=== PATIENT | female | born 1965 | race Caucasian/White ===

== ENCOUNTER 2017-05-21 13:43 | Day surgery (SDC) | payer BC ==
[~2017-05-21 13:43] MED LIST: Lactated Ringers 1,000 ML IV SCH; Midazolam 1 MG/ML 2 ML SDV ONE; Propofol 200 MG/20 ML SDV ONE; Sodium Chloride 0.9% 10 ML Syringe FLUSH PRN; Sodium Chloride 0.9% 2.5 ML Syringe FLUSH PRN; fentaNYL 100 MCG/2 ML SDV ONE
--- NOTE | 2017-05-21 14:16 | PCM48HPAN ---
Post Anesthesia Note - EVALUATION WITHIN 48HRS OF ANESTHETIC Vital Signs in Normal Range: Yes Patient Participated in Evaluation: Yes Respiratory Function Stable: Yes Airway Patent: Yes Cardiovascular Function Stable: Yes Hydration Status Stable: Yes Pain Control Satisfactory: Yes Nausea and Vomiting Control Satisfactory: Yes Mental Status Recovered: Yes
--- NOTE | 2017-05-21 14:16 | PCM.PREANE ---
Preanesthetic Assessment - Anesthesia/Transfusion/Family Hx Anesthesia History: Prior Anesthesia Without Reaction Family History of Anesthesia Reaction: No Transfusion History: No Prior Transfusion(s) - Review of Systems General: No Symptoms Pulmonary: No Symptoms Cardiovascular: No Symptoms Gastrointestinal: No Symptoms Neurological: No Symptoms Other: Reports: None - Physical Assessment NPO Status Date: 05/20/17 (cl this am) Height: 1.68 m Weight: 72.121 kg ASA Class: 1 Mental Status: Alert & Oriented x3 Airway Class: Mallampati = 1 Dentition: Reports: Normal Dentition ROM/Head Extension: Full Lungs: Clear to Auscultation, Normal Respiratory Effort Cardiovascular: Regular Rate, Regular Rhythm - Allergies Allergies/Adverse Reactions: Allergies Allergy/AdvReac Type Severity Reaction Status Date / Time No Known Allergies Allergy Verified 05/19/17 08:22 - Anesthesia Plan Pre-Op Medication Ordered: None - Acknowledgements Anesthesia Type Planned: MAC Pt an Appropriate Candidate for the Planned Anesthesia: Yes Alternatives and Risks of Anesthesia Discussed w Pt/Guardian: Yes Pt/Guardian Understands and Agrees with Anesthesia Plan: Yes PreAnesthesia Questionnaire HEENT History: Reports: None Cardiovascular History: Reports: Other (See Below) Other Cardiovascular History: elevated BP in the past Musculoskeletal History: Reports: None - Past Surgical History Head Surgeries/Procedures: Reports: None HEENT Surgical History: Reports: LASIK, Oral Surgery Musculoskeletal Surgical History: Reports: Arthroscopic Knee - SUBSTANCE USE Smoking Status *Q: Never Smoker Recreational Drug Use History: No - HOME MEDS Home Medications: Home Meds Aspirin [[place] Aspirin] 81 mg PO DAILY 05/19/17 [History] Biotin 1 tab PO DAILY 05/19/17 [History] Ca Carbonate/Vitamin D3/Vit K [Calcium + D Soft Chewable Tab] 1 tab PO DAILY 10/29 [History] Levonorgestrel-Ethin Estradiol [Marlissa-28 Tablet] 1 tab PO DAILY 05/19/17 [ History] - CURRENT (IN HOUSE) MEDS Current Meds: Current Medications Lactated Ringer's (Ringers, Lactated) 1,000 mls @ 125 mls/hr IV ASDIRECTED [facility] Sodium Chloride (Saline Flush) 10 ml FLUSH ASDIRECTED PRN PRN Reason: Keep Vein Open Sodium Chloride (Saline Flush) 2.5 ml FLUSH ASDIRECTED PRN PRN Reason: Keep Vein Open Sodium Chloride (Saline Flush) 10 ml FLUSH ASDIRECTED PRN PRN Reason: Keep Vein Open Sodium Chloride (Saline Flush) 2.5 ml FLUSH ASDIRECTED PRN PRN Reason: Keep Vein Open Discontinued Medications Fentanyl (Sublimaze) Confirm Administered Dose 100 mcg .ROUTE .STK-MED ONE Stop: 05/21/17 08:25 Midazolam HCl (Versed 1 Mg/Ml) Confirm Administered Dose 2 mg .ROUTE .STK-MED ONE Stop: 05/21/17 08:25 Propofol (Diprivan 20 Ml) Confirm Administered Dose 200 mg .ROUTE .STK-MED ONE Stop: 05/21/17 08:25
[2017-05-21] MEDS ORDERED: Propofol 200 MG/20 ML SDV ONE (14:37)
--- NOTE | 2017-05-21 14:50 | PCM.OPNOTE ---
- General Post-Op/Procedure Note Date of Surgery/Procedure: 05/21/17 Operative Procedure(s): Colonoscopy Findings: Diverticulosis Pre Op Diagnosis: Colonoscopy Post-Op Diagnosis: Diverticulosis Anesthesia Technique: MAC Primary Surgeon: Bhavani Davies Condition: Good
--- NOTE | 2017-05-21 15:09 | PCM.POSTAN ---
POST ANESTHESIA ASSESSMENT - MENTAL STATUS Mental Status: Oriented, Somnolent - RESPIRATORY Respiratory Status: Respiratory Rate WNL, Airway Patent, O2 Saturation Stable - CARDIOVASCULAR CV Status: Pulse Rate WNL, Blood Pressure Stable - GASTROINTESTINAL GI Status: No Symptoms - POST OP HYDRATION Hydration Status: Adequate & Stable
--- NOTE | 2017-05-21 19:10 | OR ---
SURGEON: LATRICE SNYDER MD DATE OF PROCEDURE: 05/21/2017 PREOPERATIVE DIAGNOSIS: Screening colonoscopy. POSTOPERATIVE DIAGNOSIS: Diverticulosis. PROCEDURE PERFORMED: Screening colonoscopy. ANESTHESIA: MAC. INSTRUMENT USED: Olympus colonoscope. EXTENT OF THE EXAM: To the cecum. PREPARATION: Good. LIMITATIONS: None. INDICATIONS: The patient is a 52-year-old female who presents for first time screening colonoscopy. We discussed the procedure, expected perioperative course, and risks including bleeding, infection, or damage to surrounding structures including perforation. The patient verbalized understanding and wishes to proceed. PROCEDURE IN DETAIL: The patient was brought into the endoscopy suite and placed in the left lateral decubitus position. A time-out was completed verifying the patient's name, age, date of , allergies, and procedure to be performed. Monitored anesthesia care was induced, and continuous oxygen was provided via nasal cannula throughout the procedure. After adequate sedation was achieved, a digital rectal exam was performed. This exam was within normal limits. A well- lubricated colonoscope was then inserted in the rectum and advanced under direct visualization to the level of the cecum. The cecum was identified by both visual and anatomic landmarks. A photograph was taken of the cecal cap. The scope was then fully withdrawn while examining the color, texture, anatomy, and integrity of the mucosa from the cecum to the anal canal. The patient was found to have diverticulosis within the distal colon. The scope was then brought into the rectum and retroflexed for visualization of the anal canal opening. This appeared normal, and a photograph was taken. The scope was then straightened out and removed from the patient. The cecum to anus time was 7 minutes. The patient tolerated the procedure well and was taken to the PACU in stable condition. ENDOSCOPIC DIAGNOSIS: Diverticulosis. RECOMMENDATIONS: Follow up in clinic in 2 weeks. KAREN WHEATLEY /[id number]
== END 2017-05-21 16:08 | disposition home or self-care (01) ==
LOC: MW.SDS 13:43
PROVIDERS: ATTEND Surgery
DX: Z12.11 Encounter for screening for malignant neoplasm of colon (principal); K57.30 Diverticulosis of large intestine without perforation or abscess without bleeding; Z80.0 Family history of malignant neoplasm of digestive organs; Z83.71 Family history of colonic polyps; Z79.82 Long term (current) use of aspirin; Z98.890 Other specified postprocedural states
CPT/HCPCS: 45378; 81025; J2250; J3010; J2704

== ENCOUNTER 2018-08-03 08:02 | Day surgery (SDC) | payer BC ==
[~2018-08-03 08:02] MED LIST changes: +Bupivacaine 0.25% 10 ML SDV ONE; +Dexamethasone 4 MG/ML 5 ML MDV ONE; +Glycopyrrolate 0.2 MG/ML SDV ONE; -Lactated Ringers 1,000 ML IV SCH; +Methylene Blue 50 MG/10 ML Ampule ONE; +Neostigmine Methylsulfate 1 MG/ML 5 ML Syringe ONE; +Ondansetron 4 MG/2 ML SDV ONE; +Rocuronium 10 MG/ML 10 ML Syringe ONE; -Sodium Chloride 0.9% 10 ML Syringe FLUSH PRN; -Sodium Chloride 0.9% 2.5 ML Syringe FLUSH PRN; +Succinylcholine 200 MG/10 ML MDV ONE; -fentaNYL 100 MCG/2 ML SDV ONE; +fentaNYL 250 MCG/5 ML SDV ONE
[2018-08-03] MEDS ORDERED: Fluorescein 5 ML Vial ONE (08:48)
--- NOTE | 2018-08-03 08:59 | PCM.PREANE ---
Preanesthetic Assessment - Anesthesia/Transfusion/Family Hx Anesthesia History: Prior Anesthesia Without Reaction Family History of Anesthesia Reaction: No Transfusion History: No Prior Transfusion(s) - Review of Systems General: No Symptoms Pulmonary: No Symptoms Cardiovascular: No Symptoms Gastrointestinal: No Symptoms Neurological: No Symptoms Other: Reports: None - Physical Assessment NPO Status Date: 08/02/18 O2 Sat by Pulse Oximetry: 98 Respiratory Rate: 16 Vital Signs: Last Vital Signs Temp 96.8 F 08/03/18 08:20 Pulse 78 08/03/18 08:20 Resp 16 08/03/18 08:20 BP 133/91 H 08/03/18 08:20 Pulse Ox 98 08/03/18 08:20 Height: 5 ft 6 in Weight: 75.296 kg ASA Class: 1 Mental Status: Alert & Oriented x3 Airway Class: Mallampati = 1 Dentition: Reports: Normal Dentition ROM/Head Extension: Full Lungs: Clear to Auscultation, Normal Respiratory Effort Cardiovascular: Regular Rate, Regular Rhythm - Lab Values: Laboratory Last Values WBC 6.22 K/uL (4.0-11.0) 08/03/18 08:25 RBC 4.34 M/uL (4.30-5.90) 08/03/18 08:25 Hgb 13.6 g/dL (12.0-16.0) 08/03/18 08:25 Hct 40.5 % (36.0-46.0) 08/03/18 08:25 MCV 93.3 fL (80.0-98.0) 08/03/18 08:25 MCH 31.3 pg (27.0-32.0) 08/03/18 08:25 MCHC 33.6 g/dL (31.0-37.0) 08/03/18 08:25 RDW Std Deviation 45.3 fl (28.0-62.0) 08/03/18 08:25 RDW Coeff of Yolanda 13 % (11.0-15.0) 08/03/18 08:25 Plt Count 246 K/uL (150-400) 08/03/18 08:25 MPV 9.20 fL (7.40-12.00) 08/03/18 08:25 Neut % (Auto) 65.2 % (48.0-80.0) 08/03/18 08:25 Lymph % (Auto) 27.0 % (16.0-40.0) 08/03/18 08:25 [place] % (Auto) 6.4 % (0.0-15.0) 08/03/18 08:25 Eos % (Auto) 1.1 % (0.0-7.0) 08/03/18 08:25 Baso % (Auto) 0.3 % (0.0-1.5) 08/03/18 08:25 Neut # (Auto) 4.1 K/uL (1.4-5.7) 08/03/18 08:25 Lymph # (Auto) 1.7 K/uL (0.6-2.4) 08/03/18 08:25 [place] # (Auto) 0.4 K/uL (0.0-0.8) 08/03/18 08:25 Eos # (Auto) 0.1 K/uL (0.0-0.7) 08/03/18 08:25 Baso # (Auto) 0.0 K/uL (0.0-0.1) 08/03/18 08:25 Nucleated RBC % 0.0 /100WBC 08/03/18 08:25 Nucleated RBCs # 0 K/uL 08/03/18 08:25 HCG, Qual NEGATIVE (NEG) 08/03/18 08:25 - Allergies Allergies/Adverse Reactions: Allergies Allergy/AdvReac Type Severity Reaction Status Date / Time No Known Allergies Allergy Verified 08/03/18 08:24 - Blood Blood Available: No - Anesthesia Plan Pre-Op Medication Ordered: None - Acknowledgements Anesthesia Type Planned: General Anesthesia Pt an Appropriate Candidate for the Planned Anesthesia: Yes Alternatives and Risks of Anesthesia Discussed w Pt/Guardian: Yes Pt/Guardian Understands and Agrees with Anesthesia Plan: Yes Additional Comments: PMH: AUB PLAN:GET PreAnesthesia Questionnaire HEENT History: Reports: None Cardiovascular History: Reports: Other (See Below) Other Cardiovascular History: elevated BP in the past Gastrointestinal History: Reports: Diverticulosis Genitourinary History: Reports: None [employer] History: Reports: Musculoskeletal History: Reports: None - Past Surgical History Head Surgeries/Procedures: Reports: None HEENT Surgical History: Reports: LASIK, Oral Surgery Other HEENT Surgeries/Procedures: lump removed from under tongue GI Surgical History: Reports: Colonoscopy Musculoskeletal Surgical History: Reports: Arthroscopic Knee - SUBSTANCE USE Smoking Status *Q: Never Smoker Recreational Drug Use History: No - HOME MEDS Home Medications: Home Meds Aspirin [[place] Aspirin EC] 81 mg PO DAILY 05/19/17 [History] Biotin 1 tab PO DAILY 05/19/17 [History] Ca Carbonate/Vitamin D3/Vit K [Calcium + D Soft Chewable Tab] 1 tab PO DAILY 10/29 [History] Levonorgestrel-Ethin Estradiol [Marlissa-28 Tablet] 1 tab PO DAILY 05/19/17 [ History] - CURRENT (IN HOUSE) MEDS Current Meds: Current Medications Discontinued Medications Bupivacaine HCl (Sensorcaine-Mpf 0.25%) Confirm Administered Dose 20 ml .ROUTE .STK-MED ONE Stop: 08/03/18 08:03 Dexamethasone (Dexamethasone) Confirm Administered Dose 20 mg .ROUTE .STK-MED ONE Stop: 08/03/18 07:10 Fentanyl (Sublimaze) Confirm Administered Dose 250 mcg .ROUTE .STK-MED ONE Stop: 08/03/18 07:08 Fluorescein Sodium ([place]-Fluor) Confirm Administered Dose 5 ml .ROUTE .STK-MED ONE Stop: 08/03/18 08:49 Glycopyrrolate (Robinul) Confirm Administered Dose 0.6 mg .ROUTE .STK-MED ONE Stop: 08/03/18 07:14 Lidocaine HCl (Xylocaine-Mpf 1%) Confirm Administered Dose 5 mls @ as directed .ROUTE .STK-MED ONE Stop: 08/03/18 07:10 Acetaminophen (Ofirmev) Confirm Administered Dose 100 mls @ as directed IV .STK- MED ONE Stop: 08/03/18 07:15 Methylene Blue (Provayblue) Confirm Administered Dose 50 mg .ROUTE .STK-MED ONE Stop: 08/03/18 08:03 Midazolam HCl (Versed 1 Mg/Ml) Confirm Administered Dose 2 mg .ROUTE .STK-MED ONE Stop: 08/03/18 07:08 Neostigmine Methylsulfate (Neostigmine) Confirm Administered Dose 5 mg .ROUTE .STK-MED ONE Stop: 08/03/18 07:14 Ondansetron HCl (Zofran) Confirm Administered Dose 4 mg .ROUTE .STK-MED ONE Stop: 08/03/18 07:10 Propofol (Diprivan 20 Ml) Confirm Administered Dose 200 mg .ROUTE .STK-MED ONE Stop: 08/03/18 07:08 Rocuronium [place] (Zemuron) Confirm Administered Dose 100 mg .ROUTE .STK-MED ONE Stop: 08/03/18 07:10 Succinylcholine Chloride (Quelicin) Confirm Administered Dose 200 mg .ROUTE .K -MED ONE Stop: 08/03/18 07:10
[2018-08-03] MEDS ORDERED: Furosemide 40 MG/4 ML VIAL ONE (10:45)
[2018-08-03] MEDS ORDERED: ceFAZolin/Dextrose,Iso-Osmotic 2 GM/50 ML Duplex Bag IV ONE (10:45)
[2018-08-03] MEDS ORDERED: fentaNYL 100 MCG/2 ML SDV IVPUSH PRN (11:13)
[2018-08-03] MEDS ORDERED: Glycopyrrolate 0.2 MG/ML SDV ONE ×2 (11:24→12:01)
[2018-08-03] MEDS ORDERED: Ketorolac 30 MG/ML SDV ONE (11:53)
[2018-08-03] MEDS ORDERED: HYDROmorphone 2 MG/ML Syringe ONE (12:17)
[2018-08-03] MEDS ORDERED: Sodium Chloride 0.9% 20 ML ONE (12:18)
[2018-08-03] MEDS ORDERED: Acetaminophen/oxyCODONE 325-5 MG Tab PO PRN ×2 (13:05)
[2018-08-03] MEDS ORDERED: Ondansetron 4 MG/2 ML SDV IVPUSH PRN (13:05)
[2018-08-03] MEDS ORDERED: Promethazine 25 MG/ML SDV IM PRN (13:05)
[2018-08-03] MEDS ORDERED: Morphine 4 MG/ML Syringe IVPUSH PRN (13:05)
--- NOTE | 2018-08-03 13:14 | PCM.POSTAN ---
POST ANESTHESIA ASSESSMENT - MENTAL STATUS Mental Status: Alert, Oriented - RESPIRATORY Respiratory Status: Respiratory Rate WNL, Airway Patent, O2 Saturation Stable - CARDIOVASCULAR CV Status: Pulse Rate WNL, Blood Pressure Stable - GASTROINTESTINAL GI Status: No Symptoms - POST OP HYDRATION Hydration Status: Adequate & Stable
[2018-08-03] MEDS ORDERED: Lactated Ringers 1,000 ML IV SCH (13:15)
[2018-08-03] MEDS ORDERED: Ketorolac 30 MG/ML SDV IVPUSH SCH (13:15)
--- NOTE | 2018-08-03 13:17 | PCM.OPNOTE ---
- General Post-Op/Procedure Note Date of Surgery/Procedure: 08/03/18 Operative Procedure(s): Laparoscopic assisted vaginal hysterectomy, bilateral salpingoophrectomy with cystoscopy Findings: Bulky uterus 12-14 weeks size, small subserosa fibroid at the right cornua. Normal appearing tubes and ovaries. No bladder injury with efflux of urine from both ureters on cystoscopy Pre Op Diagnosis: Menorrhagia. Hypertrophy of the uterus Post-Op Diagnosis: Same Anesthesia Technique: General ET Tube Primary Surgeon: Rosa [place] Engineer: Erendira Juares Pathology: Uterus, cervix, tubes and ovaries Fluid Replacement, Intraop: 1,800 Output, Urine Amount: 350 EBL in mLs: 100 Complications: None Condition: Good Free Text/Narrative:: Intake & Output 08/02/18 08/03/18 08/03/18 22:59 06:59 14:59 Output Total 350 Balance -350
--- NOTE | 2018-08-03 18:06 | PCM.SURGPN ---
- General Info Date of Service: 08/03/18 POD#: 0 Post-Op Diagnosis: s/p LAVH + BSO Admission Diagnosis/Problem: Menorrhagia with irregular cycle Functional Status: Reports: Pain Controlled, Tolerating Diet, Ambulating - Review of Systems General: Denies: Fever, Malaise, Chills HEENT: Denies: Headaches Pulmonary: Denies: Shortness of Breath, Pleuritic Chest Pain Cardiovascular: Denies: Chest Pain, Palpitations, Dyspnea on Exertion Gastrointestinal: Denies: Abdominal Pain Genitourinary: Denies: Flank Pain - Patient Data Vitals - Most Recent: Last Vital Signs Temp 36.4 C 08/03/18 16:14 Pulse 89 08/03/18 16:14 Resp 16 08/03/18 16:14 BP 129/73 08/03/18 16:14 Pulse Ox 96 08/03/18 16:14 Weight - Most Recent: 166 lb I&O - Last 24 Hours: Intake & Output 08/03/18 08/03/18 08/03/18 06:59 14:59 22:59 Intake Total 2800 500 Output Total 1250 200 Balance 1550 300 Lab Results Last 24 Hrs: Laboratory Results - last 24 hr 08/03/18 08/03/18 08/03/18 Range/Units 08:25 08:25 08:25 WBC 6.22 (4.0-11.0) K/uL RBC 4.34 (4.30-5.90) M/uL Hgb 13.6 (12.0-16.0) g/dL Hct 40.5 (36.0-46.0) % MCV 93.3 (80.0-98.0) fL MCH 31.3 (27.0-32.0) pg MCHC 33.6 (31.0-37.0) g/dL RDW Std Deviation 45.3 (28.0-62.0) fl RDW Coeff of Yolanda 13 (11.0-15.0) % Plt Count 246 (150-400) K/uL MPV 9.20 (7.40-12.00) fL Neut % (Auto) 65.2 (48.0-80.0) % Lymph % (Auto) 27.0 (16.0-40.0) % [place] % (Auto) 6.4 (0.0-15.0) % Eos % (Auto) 1.1 (0.0-7.0) % Baso % (Auto) 0.3 (0.0-1.5) % Neut # (Auto) 4.1 (1.4-5.7) K/uL Lymph # (Auto) 1.7 (0.6-2.4) K/uL [place] # (Auto) 0.4 (0.0-0.8) K/uL Eos # (Auto) 0.1 (0.0-0.7) K/uL Baso # (Auto) 0.0 (0.0-0.1) K/uL Nucleated RBC % 0.0 /100WBC Nucleated RBCs # 0 K/uL Sodium 136 (136-145) mmol/L Potassium 4.1 (3.5-5.1) mmol/L Chloride 103 (98-107) mmol/L Carbon Dioxide 26.7 (21.0-32.0) mmol/L BUN 10 (7.0-18.0) mg/dL Creatinine 1.0 (0.6-1.0) mg/dL Est Cr Clr Drug Dosing 62.31 mL/min Estimated GFR (MDRD) 58.5 ml/min Glucose 90 (74-106) mg/dL Calcium 9.0 (8.5-10.1) mg/dL HCG, Qual NEGATIVE (NEG) Blood Type Antibody Screen 08/03/18 Range/Units 08:25 WBC (4.0-11.0) K/uL RBC (4.30-5.90) M/uL Hgb (12.0-16.0) g/dL Hct (36.0-46.0) % MCV (80.0-98.0) fL MCH (27.0-32.0) pg MCHC (31.0-37.0) g/dL RDW Std Deviation (28.0-62.0) fl RDW Coeff of Yolanda (11.0-15.0) % Plt Count (150-400) K/uL MPV (7.40-12.00) fL Neut % (Auto) (48.0-80.0) % Lymph % (Auto) (16.0-40.0) % [place] % (Auto) (0.0-15.0) % Eos % (Auto) (0.0-7.0) % Baso % (Auto) (0.0-1.5) % Neut # (Auto) (1.4-5.7) K/uL Lymph # (Auto) (0.6-2.4) K/uL [place] # (Auto) (0.0-0.8) K/uL Eos # (Auto) (0.0-0.7) K/uL Baso # (Auto) (0.0-0.1) K/uL Nucleated RBC % /100WBC Nucleated RBCs # K/uL Sodium (136-145) mmol/L Potassium (3.5-5.1) mmol/L Chloride (98-107) mmol/L Carbon Dioxide (21.0-32.0) mmol/L BUN (7.0-18.0) mg/dL Creatinine (0.6-1.0) mg/dL Est Cr Clr Drug Dosing mL/min Estimated GFR (MDRD) ml/min Glucose (74-106) mg/dL Calcium (8.5-10.1) mg/dL HCG, Qual (NEG) Blood Type A POSITIVE Antibody Screen NEGATIVE Med Orders - Current: Current Medications Lactated Ringer's (Ringers, Lactated) 1,000 mls @ 125 mls/hr IV ASDIRECTED [facility] Ketorolac Tromethamine (Toradol) 30 mg IVPUSH Q6H [facility] Stop: 08/04/18 13:16 Morphine Sulfate (Morphine) 4 mg IVPUSH Q2H PRN PRN Reason: Pain (severe 7-10) Ondansetron HCl (Zofran) 4 mg IVPUSH Q6H PRN PRN Reason: Nausea/Vomiting Oxycodone/Acetaminophen (Percocet 325-5 Mg) 1 tab PO Q4H PRN PRN Reason: Pain (moderate 4-6) Oxycodone/Acetaminophen (Percocet 325-5 Mg) 2 tab PO Q4H PRN PRN Reason: Pain (moderate 4-6) Promethazine HCl (Phenergan) 25 mg IM Q6H PRN PRN Reason: Nausea/Vomiting Discontinued Medications Bupivacaine HCl (Sensorcaine-Mpf 0.25%) Confirm Administered Dose 20 ml .ROUTE .STK-MED ONE Stop: 08/03/18 08:03 Cefazolin Sodium/Dextrose (Ancef) Confirm Administered Dose 2 gm IV .STK-MED ONE Stop: 08/03/18 10:46 Dexamethasone (Dexamethasone) Confirm Administered Dose 20 mg .ROUTE .STK-MED ONE Stop: 08/03/18 07:10 Fentanyl (Sublimaze) Confirm Administered Dose 250 mcg .ROUTE .STK-MED ONE Stop: 08/03/18 07:08 Fentanyl (Sublimaze) 50 mcg IVPUSH Q5M PRN PRN Reason: Pain (severe 7-10) Stop: 08/03/18 14:00 Fluorescein Sodium (Ak-Fluor) Confirm Administered Dose 5 ml .ROUTE .STK-MED ONE Stop: 08/03/18 08:49 Furosemide (Lasix) Confirm Administered Dose 40 mg .ROUTE .ST-MED ONE Stop: 08/03/18 10:46 Glycopyrrolate (Robinul) Confirm Administered Dose 0.6 mg .ROUTE .ST-MED ONE Stop: 08/03/18 07:14 Glycopyrrolate (Robinul) Confirm Administered Dose 0.2 mg .ROUTE .ST-MED ONE Stop: 08/03/18 11:25 Glycopyrrolate (Robinul) Confirm Administered Dose 0.2 mg .ROUTE .STK-MED ONE Stop: 08/03/18 12:02 Hydromorphone HCl (Dilaudid) Confirm Administered Dose 2 mg .ROUTE .STK-MED ONE Stop: 08/03/18 12:18 Lidocaine HCl (Xylocaine-Mpf 1%) Confirm Administered Dose 5 mls @ as directed .ROUTE .ST-MED ONE Stop: 08/03/18 07:10 Acetaminophen (Ofirmev) Confirm Administered Dose 100 mls @ as directed IV .STK- MED ONE Stop: 08/03/18 07:15 Sodium Chloride (Normal Saline) Confirm Administered Dose 20 mls @ as directed .ROUTE .STK-MED ONE Stop: 08/03/18 12:19 Ketorolac Tromethamine (Toradol) Confirm Administered Dose 30 mg .ROUTE .STK- MED ONE Stop: 08/03/18 11:54 Ketorolac Tromethamine (Toradol) 30 mg IVPUSH Q6H [facility] Stop: 08/04/18 13:16 Last Admin: 08/03/18 14:19 Dose: Not Given Methylene Blue (Provayblue) Confirm Administered Dose 50 mg .ROUTE .STK-MED ONE Stop: 08/03/18 08:03 Midazolam HCl (Versed 1 Mg/Ml) Confirm Administered Dose 2 mg .ROUTE .STK-MED ONE Stop: 08/03/18 07:08 Neostigmine Methylsulfate (Neostigmine) Confirm Administered Dose 5 mg .ROUTE .STK-MED ONE Stop: 08/03/18 07:14 Ondansetron HCl (Zofran) Confirm Administered Dose 4 mg .ROUTE .STK-MED ONE Stop: 08/03/18 07:10 Propofol (Diprivan 20 Ml) Confirm Administered Dose 200 mg .ROUTE .STK-MED ONE Stop: 08/03/18 07:08 Rocuronium [place] (Zemuron) Confirm Administered Dose 100 mg .ROUTE .STK-MED ONE Stop: 08/03/18 07:10 Succinylcholine Chloride (Quelicin) Confirm Administered Dose 200 mg .ROUTE .STK -MED ONE Stop: 08/03/18 07:10 - Exam Wound/Incisions: Dressing Dry and Intact General: Alert, Oriented Neck: Supple Lungs: Clear to Auscultation, Normal Respiratory Effort Cardiovascular: Regular Rate, Regular Rhythm GI/Abdominal Exam: Soft, Non-Tender Extremities: Non-Tender Skin: Warm - Problem List & Annotations (1) S/P laparoscopic assisted vaginal hysterectomy (LAVH) SNOMED Code(s): 381314912, 59221079, 428543783 Code(s): Z90.710 - ACQUIRED ABSENCE OF BOTH CERVIX AND UTERUS Status: Acute Current Visit: Yes (2) Status post bilateral salpingo-oophorectomy (BSO) SNOMED Code(s): 396280284, 547114349 Code(s): Z90.722 - ACQUIRED ABSENCE OF OVARIES, BILATERAL Status: Acute Current Visit: Yes - Problem List Review Problem List Initiated/Reviewed/Updated: Yes - My Orders Last 24 Hours: Active Orders 24 hr Category Date Time Status Patient Status [ADT] Routine ADT 08/03/18 13:09 Active Antiembolic Devices [RC] PER UNIT ROUTINE Care 08/03/18 13:10 Active Intake and Output [RC] Q12H Care 08/03/18 13:10 Active May Shower [RC] ASDIRECTED Care 08/03/18 13:05 Active Notify Provider Intake and Out [RC] ASDIRECTED Care 08/03/18 13:09 Active Notify Provider Vital Signs [RC] ASDIRECTED Care 08/03/18 13:09 Active Oxygen Therapy [RC] ASDIRECTED Care 08/03/18 13:09 Active RT Incentive Spirometry [RC] Q2HWA Care 08/03/18 13:09 Active Up With Assistance [RC] PER UNIT ROUTINE Care 08/03/18 13:09 Active Up ad Lila [RC] PER UNIT ROUTINE Care 08/03/18 13:09 Active Urinary Catheter Removal [RC] Per Unit Routine Care 08/03/18 13:09 Active Vital Signs [RC] Q4H Care 08/03/18 13:09 Active Regular Diet [DIET] Diet 08/03/18 Dinner Active BASIC METABOLIC PANEL,BMP [CHEM] AM Lab 08/04/18 05:11 Ordered CBC WITH AUTO DIFF [HEME] AM Lab 08/04/18 05:11 Ordered Acetaminophen/oxyCODONE [Percocet 325-5 MG] Med 08/03/18 13:05 Active 1 tab PO Q4H PRN Acetaminophen/oxyCODONE [Percocet 325-5 MG] Med 08/03/18 13:05 Active 2 tab PO Q4H PRN Ketorolac [Toradol] Med 08/03/18 18:15 Active 30 mg IVPUSH Q6H Lactated Ringers [Ringers, Lactated] 1,000 ml Med 08/03/18 13:15 Active IV ASDIRECTED Morphine Med 08/03/18 13:05 Active 4 mg IVPUSH Q2H PRN Ondansetron [Zofran] Med 08/03/18 13:05 Active 4 mg IVPUSH Q6H PRN Promethazine [Phenergan] Med 08/03/18 13:05 Active 25 mg IM Q6H PRN Perineal Care [OM.PC] Per Unit Routine Oth 08/03/18 13:10 Ordered Peripheral IV Discontinue [OM.PC] Routine Oth 08/03/18 13:09 Ordered Sequential Compression Device [OM.PC] Per Unit Routine Oth 08/03/18 13:09 Ordered Resuscitation Status Routine Resus Stat 08/03/18 13:05 Ordered Medication Orders Lactated Ringer's (Ringers, Lactated) 1,000 mls @ 125 mls/hr IV ASDIRECTED [facility] Ketorolac Tromethamine (Toradol) 30 mg IVPUSH Q6H [facility] Stop: 08/04/18 13:16 Morphine Sulfate (Morphine) 4 mg IVPUSH Q2H PRN PRN Reason: Pain (severe 7-10) Ondansetron HCl (Zofran) 4 mg IVPUSH Q6H PRN PRN Reason: Nausea/Vomiting Oxycodone/Acetaminophen (Percocet 325-5 Mg) 1 tab PO Q4H PRN PRN Reason: Pain (moderate 4-6) Oxycodone/Acetaminophen (Percocet 325-5 Mg) 2 tab PO Q4H PRN PRN Reason: Pain (moderate 4-6) Promethazine HCl (Phenergan) 25 mg IM Q6H PRN PRN Reason: Nausea/Vomiting - Assessment Assessment (Free Text/Narrative):: POD #0 s/p LAVH +BSO, stable and afebrile Ambulating without difficulties Adequate UO - Plan Plan (Free Text/Narrative):: Continue routine postop care Remove [place] in the am Aim for discharge tomorrow
[2018-08-03] MEDS: Ketorolac 30 MG/ML SDV IVPUSH SCH ×2 (18:22→23:40)
--- NOTE | 2018-08-03 19:21 | OR ---
SURGEON: Rosa Worthy MD DATE OF PROCEDURE: 08/03/2018 COURT RECORDER: Erendira Juares. PREOPERATIVE DIAGNOSES: 1. Excessive frequent bleeding in irregular cycles. 2. Hypertrophy of the uterus. POSTOPERATIVE DIAGNOSES: 1. Excessive frequent bleeding in irregular cycles. 2. Hypertrophy of the uterus. 3. Uterine fibroid. PROCEDURES PERFORMED: Laparoscopic-assisted vaginal hysterectomy with bilateral salpingo-oophorectomy and cystoscopy. ANESTHESIA: General endotracheal. INTRAVENOUS FLUIDS: 3000 mL of crystalloid. ESTIMATED BLOOD LOSS: 100 mL. FINDINGS: Bulky uterus, 12 to 14 week size with small subserosal fibroids seen towards the right corner. Normal-appearing tubes and ovaries. Bilateral ureteral orifices showed copious flow of fluorescent yellow urine on cystoscopy with no evidence of trauma to the bladder mucosa. COMPLICATIONS: None. DISPOSITION: Stable to recovery room. BRIEF HISTORY: The patient is a 53-year-old lady who presented to [facility] with history of irregular pattern of bleeding heavy over the last one year that has gotten increasingly worse within the last 6 months despite being on continuous combined oral contraceptives, which she has been on for over 30 years. She was evaluated by her primary healthcare provider who performed a pelvic ultrasound that showed an enlarged uterus with no definite fibroids identified. An office based endometrial biopsy preformed by [facility] was benign. Treatment options were discussed with the patient and she opted to proceed with definite treatment, a hysterectomy with removals of her tubes and ovaries. She understands that she would go into postsurgical menopause once her ovaries are removed and might require hormone replacement. Surgical risks were discussed with the patient including, but not limited to, infection, injury to the bladder, bowel, blood vessels, and any other internal organs, and also the risk of thromboembolic event. Understanding these risks, she consented to proceed and a written consent was obtained. DESCRIPTION OF PROCEDURE: The patient was taken to the operating room where induction of general anesthesia was performed without difficulty. After adequate level of anesthesia, she was placed in dorsal lithotomy position. The abdomen was prepped with chlorhexidine, and the perineum and vagina were prepped with Betadine. She was draped in the usual sterile fashion for laparoscopic-assisted vaginal hysterectomy. A Campos catheter had been placed and was backed filled with 30 mL of dilute methylene blue. SCDs were in place. She received 2 g of Ancef and an appropriate time-out was held. Examination under anesthesia revealed a 12 to 14 weeks anteverted uterus with no palpable adnexal masses. The bivalve side open speculum was then placed into the vagina and the uterus was sounded to 12 cm, and a ZUMI uterine manipulator was then placed. The speculum was removed and the gear cutting machine operator's gloves was changed. The attention was then turned to the abdomen where 0.25% Marcaine was injected into the umbilical fold and a 5 mm incision was made with a scalpel. The anterior abdominal wall was then elevated and a Veress needle was introduced into the peritoneal cavity with opening pressure of 5 mmHg. CO2 insufflation was performed and an adequate pneumoperitoneum of 15 mmHg was obtained. The Veress needle was then removed, and a 5 mm port and trocar were introduced into the peritoneal cavity. Correct placement was confirmed with a 5 mm laparoscope with no evidence of trauma at the entry site. The uterus was then elevated out of the pelvis and the patient was placed in a steep Trendelenburg position. Two additional 5 mm ports were then placed under direct visualization in the right and left lower quadrants after the areas had been infiltrated with 0.25% Marcaine. Each of this port was placed without difficulty. The uterus was then lifted further out of the pelvis, and the ureters were noted to be deep within the pelvis away from the operative field. Using a 5 mm LigaSure device, the left infundibulopelvic ligament was cauterized and ligated, and continued along the anatomical plane onto the round ligament and then onto the broad ligament. All structures were cauterized twice before they were ligated. The anterior leaf of the broad ligament was then opened to develop an adequate bladder flap over the lower uterine segment. This was carried onto the right side and the bladder flap was created without difficulty. The posterior leaf of the broad ligament was then excised and pushed down, and the uterine artery was skeletonized was then double cauterized and ligated. A similar steps were performed on the patient's right. Both sides were found to be hemostatic and the instruments were then removed from the abdomen and it was desufflated. Attention was then turned to the patient's vagina. The clamped catheter was released. A weighted speculum was then placed posteriorly, and the right angle retractors were placed into the vagina retracting the vaginal wall anteriorly and laterally. The cervix was grabbed with Roseann tenaculum and circumscribed using electrocautery. The vaginal mucosa was then pushed away from the cervix anteriorly and posteriorly, and the posterior cul-de-sac was entered sharply. The Yue-Auvard speculum was then placed into the peritoneal cavity after the posterior peritoneum was secured with a single stitch of 2-0 Vicryl. The anterior cul-de-sac was then entered sharply with Metzenbaum scissors along the previously created bladder flap laparoscopically. A right angle was then placed into the anterior cul-de-sac, lifting the bladder cephalad. The right and the left uterosacral ligaments were then cross clamped with a Oscar clamp, cut, and suture ligated with a Oscar suture of 2-0 Vicryl on either side. These stitches were retained. Once this was done, the uterus was freed and delivered vaginally, passed to the control technician of the operating field. The pedicles were then reexamined and there was a bleeding vessel noted on the right side, this was clamped with a Oscar clamp, and a hemostatic suture was placed with 2-0 Vicryl. Once this was done, the pedicles were re-examined and found to be completely hemostatic. The retained uterosacral ligaments were then transfixed to the vaginal apices ipsilaterally. All the pedicles were then re- examined and found to be completely hemostatic. The cuff was then closed with running locked suture of 0 Polysorb. The catheter was removed from the bladder. Cystoscopy was then performed after intravenous fluorescein with Lasix had been given. There was copious flow of fluorescent yellow urine bilaterally from the ureteric orifices. A new Campos was replaced. The vagina was re-examined again for complete hemostasis, and this was found to be adequate. Thereafter, the gear cutting machine operator's gloves was changed. Attention was then turned abdominally where the abdomen was reinsufflated. The pelvis was copiously irrigated and inspected. There was a small oozing area along the peritoneum on the right pelvic side wall , this was gently cauterized using the LigaSure device, and it was hemostatic thereafter. The abdomen was reinspected under lower pressure of 5 mmHg and was found to be completely hemostatic. Thereafter, the bladder was desufflated and both lateral ports were removed under direct visualization. The umbilical port and scope were then removed. The skin was closed with subcuticular stitches of 4-0 Monocryl. Final sponge, needle, and instrument counts were reported as correct. There were no known complications, and the patient was transferred to the recovery room in good condition. MATTHIEU / CORRY /[id number] MTDD
[2018-08-04] MEDS: Ketorolac 30 MG/ML SDV IVPUSH SCH (06:14)
--- NOTE | 2018-08-04 07:59 | PCM48HPAN ---
Post Anesthesia Note - EVALUATION WITHIN 48HRS OF ANESTHETIC Vital Signs in Normal Range: Yes Patient Participated in Evaluation: Yes Respiratory Function Stable: Yes Airway Patent: Yes Cardiovascular Function Stable: Yes Hydration Status Stable: Yes Pain Control Satisfactory: Yes Nausea and Vomiting Control Satisfactory: Yes Mental Status Recovered: Yes Resp Rate: 16 - COMMENTS/OBSERVATIONS Free Text/Narrative:: Pt looks wonderful this AM and denies any problems with nausea or pain overnight. Currently eating breakfast. No apparent anesthesia complications.
--- NOTE | 2018-08-04 08:58 | PCM.SURGPN ---
- General Info Date of Service: 08/04/18 POD#: 1 Functional Status: Reports: Pain Controlled, Tolerating Diet, Ambulating, Urinating - Review of Systems General: Denies: Fever HEENT: Denies: Headaches Pulmonary: Denies: Shortness of Breath, Pleuritic Chest Pain Cardiovascular: Denies: Chest Pain, Palpitations, Dyspnea on Exertion Genitourinary: Denies: Dysuria, Incontinence, Flank Pain - Patient Data Vitals - Most Recent: Last Vital Signs Temp 36.7 C 08/04/18 07:48 Pulse 76 08/04/18 07:48 Resp 16 08/04/18 07:58 BP 127/60 08/04/18 07:48 Pulse Ox 96 08/04/18 07:48 Weight - Most Recent: 166 lb I&O - Last 24 Hours: Intake & Output 08/03/18 08/04/18 08/04/18 22:59 06:59 14:59 Intake Total 500 800 Output Total 200 700 Balance 300 100 Lab Results Last 24 Hrs: Laboratory Results - last 24 hr 08/03/18 08/03/18 08/04/18 Range/Units 08:25 08:25 05:00 WBC 10.80 (4.0-11.0) K/uL RBC 4.00 L (4.30-5.90) M/uL Hgb 12.3 (12.0-16.0) g/dL Hct 37.3 (36.0-46.0) % MCV 93.3 (80.0-98.0) fL MCH 30.8 (27.0-32.0) pg MCHC 33.0 (31.0-37.0) g/dL RDW Std Deviation 45.0 (28.0-62.0) fl RDW Coeff of Yolanda 13 (11.0-15.0) % Plt Count 265 (150-400) K/uL MPV 9.50 (7.40-12.00) fL Neut % (Auto) 86.4 H (48.0-80.0) % Lymph % (Auto) 7.6 L (16.0-40.0) % [place] % (Auto) 6.0 (0.0-15.0) % Eos % (Auto) 0.0 (0.0-7.0) % Baso % (Auto) 0.0 (0.0-1.5) % Neut # (Auto) 9.3 H (1.4-5.7) K/uL Lymph # (Auto) 0.8 (0.6-2.4) K/uL [place] # (Auto) 0.7 (0.0-0.8) K/uL Eos # (Auto) 0.0 (0.0-0.7) K/uL Baso # (Auto) 0.0 (0.0-0.1) K/uL Nucleated RBC % 0.0 /100WBC Nucleated RBCs # 0 K/uL Sodium 136 (136-145) mmol/L Potassium 4.1 (3.5-5.1) mmol/L Chloride 103 (98-107) mmol/L Carbon Dioxide 26.7 (21.0-32.0) mmol/L BUN 10 (7.0-18.0) mg/dL Creatinine 1.0 (0.6-1.0) mg/dL Est Cr Clr Drug Dosing 62.31 mL/min Estimated GFR (MDRD) 58.5 ml/min Glucose 90 (74-106) mg/dL Calcium 9.0 (8.5-10.1) mg/dL Blood Type A POSITIVE Antibody Screen NEGATIVE 08/04/18 Range/Units 05:00 WBC (4.0-11.0) K/uL RBC (4.30-5.90) M/uL Hgb (12.0-16.0) g/dL Hct (36.0-46.0) % MCV (80.0-98.0) fL MCH (27.0-32.0) pg MCHC (31.0-37.0) g/dL RDW Std Deviation (28.0-62.0) fl RDW Coeff of Yolanda (11.0-15.0) % Plt Count (150-400) K/uL MPV (7.40-12.00) fL Neut % (Auto) (48.0-80.0) % Lymph % (Auto) (16.0-40.0) % [place] % (Auto) (0.0-15.0) % Eos % (Auto) (0.0-7.0) % Baso % (Auto) (0.0-1.5) % Neut # (Auto) (1.4-5.7) K/uL Lymph # (Auto) (0.6-2.4) K/uL [place] # (Auto) (0.0-0.8) K/uL Eos # (Auto) (0.0-0.7) K/uL Baso # (Auto) (0.0-0.1) K/uL Nucleated RBC % /100WBC Nucleated RBCs # K/uL Sodium 135 L (136-145) mmol/L Potassium 4.8 (3.5-5.1) mmol/L Chloride 102 (98-107) mmol/L Carbon Dioxide 25.6 (21.0-32.0) mmol/L BUN 10 (7.0-18.0) mg/dL Creatinine 1.0 (0.6-1.0) mg/dL Est Cr Clr Drug Dosing 62.31 mL/min Estimated GFR (MDRD) 58.5 ml/min Glucose 113 H (74-106) mg/dL Calcium 8.7 (8.5-10.1) mg/dL Blood Type Antibody Screen Med Orders - Current: Current Medications Lactated Ringer's (Ringers, Lactated) 1,000 mls @ 125 mls/hr IV ASDIRECTED [facility] Ketorolac Tromethamine (Toradol) [address] [facility] Stop: 08/04/18 13:16 Last Admin: 08/04/18 06:14 Dose: 30 mg Morphine Sulfate (Morphine Sulfate) 4 mg IV Q2H PRN PRN Reason: Pain (severe 7-10) Ondansetron HCl (Zofran) 4 mg IVPUSH Q6H PRN PRN Reason: Nausea/Vomiting Oxycodone/Acetaminophen (Percocet 325-5 Mg) 1 tab PO Q4H PRN PRN Reason: Pain (moderate 4-6) Last Admin: 08/03/18 22:14 Dose: 1 tab Oxycodone/Acetaminophen (Percocet 325-5 Mg) 2 tab PO Q4H PRN PRN Reason: Pain (moderate 4-6) Promethazine HCl (Phenergan) 25 mg IM Q6H PRN PRN Reason: Nausea/Vomiting Discontinued Medications Bupivacaine HCl (Sensorcaine-Mpf 0.25%) Confirm Administered Dose 20 ml .ROUTE .STK-MED ONE Stop: 08/03/18 08:03 Cefazolin Sodium/Dextrose (Ancef) Confirm Administered Dose 2 gm IV .STK-MED ONE Stop: 08/03/18 10:46 Dexamethasone (Dexamethasone) Confirm Administered Dose 20 mg .ROUTE .STK-MED ONE Stop: 08/03/18 07:10 Fentanyl (Sublimaze) Confirm Administered Dose 250 mcg .ROUTE .STK-MED ONE Stop: 08/03/18 07:08 Fentanyl (Sublimaze) 50 mcg IVPUSH Q5M PRN PRN Reason: Pain (severe 7-10) Stop: 08/03/18 14:00 Fluorescein Sodium (Ak-Fluor) Confirm Administered Dose 5 ml .ROUTE .STK-MED ONE Stop: 08/03/18 08:49 Furosemide (Lasix) Confirm Administered Dose 40 mg .ROUTE .STK-MED ONE Stop: 08/03/18 10:46 Glycopyrrolate (Robinul) Confirm Administered Dose 0.6 mg .ROUTE .STK-MED ONE Stop: 08/03/18 07:14 Glycopyrrolate (Robinul) Confirm Administered Dose 0.2 mg .ROUTE .STK-MED ONE Stop: 08/03/18 11:25 Glycopyrrolate (Robinul) Confirm Administered Dose 0.2 mg .ROUTE .STK-MED ONE Stop: 08/03/18 12:02 Hydromorphone HCl (Dilaudid) Confirm Administered Dose 2 mg .ROUTE .STK-MED ONE Stop: 08/03/18 12:18 Lidocaine HCl (Xylocaine-Mpf 1%) Confirm Administered Dose 5 mls @ as directed .ROUTE .STK-MED ONE Stop: 08/03/18 07:10 Acetaminophen (Ofirmev) Confirm Administered Dose 100 mls @ as directed IV .STK- MED ONE Stop: 08/03/18 07:15 Sodium Chloride (Normal Saline) Confirm Administered Dose 20 mls @ as directed .ROUTE .STK-MED ONE Stop: 08/03/18 12:19 Ketorolac Tromethamine (Toradol) Confirm Administered Dose 30 mg .ROUTE .STK- MED ONE Stop: 08/03/18 11:54 Ketorolac Tromethamine (Toradol) 30 mg IVPUSH Q6H [facility] Stop: 08/04/18 13:16 Last Admin: 08/03/18 14:19 Dose: Not Given Methylene Blue (Provayblue) Confirm Administered Dose 50 mg .ROUTE .STK-MED ONE Stop: 08/03/18 08:03 Midazolam HCl (Versed 1 Mg/Ml) Confirm Administered Dose 2 mg .ROUTE .STK-MED ONE Stop: 08/03/18 07:08 Morphine Sulfate (Morphine) 4 mg IVPUSH Q2H PRN PRN Reason: Pain (severe 7-10) Neostigmine Methylsulfate (Neostigmine) Confirm Administered Dose 5 mg .ROUTE .STK-MED ONE Stop: 08/03/18 07:14 Ondansetron HCl (Zofran) Confirm Administered Dose 4 mg .ROUTE .STK-MED ONE Stop: 08/03/18 07:10 Propofol (Diprivan 20 Ml) Confirm Administered Dose 200 mg .ROUTE .STK-MED ONE Stop: 08/03/18 07:08 Rocuronium [place] (Zemuron) Confirm Administered Dose 100 mg .ROUTE .STK-MED ONE Stop: 08/03/18 07:10 Succinylcholine Chloride (Quelicin) Confirm Administered Dose 200 mg .ROUTE .STK -MED ONE Stop: 08/03/18 07:10 - Exam Wound/Incisions: Dressing Dry and Intact General: Alert, Oriented Lungs: Clear to Auscultation, Normal Respiratory Effort Cardiovascular: Regular Rate, Regular Rhythm GI/Abdominal Exam: Soft, Non-Tender Extremities: Non-Tender Psy/Mental Status: Alert, Normal Affect, Normal Mood - Problem List & Annotations (1) S/P laparoscopic assisted vaginal hysterectomy (LAVH) SNOMED Code(s): 153959408, 26673977, 460608053 Code(s): Z90.710 - ACQUIRED ABSENCE OF BOTH CERVIX AND UTERUS Status: Acute Current Visit: Yes (2) Status post bilateral salpingo-oophorectomy (BSO) SNOMED Code(s): 817056772, 259473152 Code(s): Z90.722 - ACQUIRED ABSENCE OF OVARIES, BILATERAL Status: Acute Current Visit: Yes - Problem List Review Problem List Initiated/Reviewed/Updated: Yes - My Orders Last 24 Hours: Active Orders 24 hr Category Date Time Status Patient Status [ADT] Routine ADT 08/03/18 13:09 Active Antiembolic Devices [RC] PER UNIT ROUTINE Care 08/03/18 13:10 Active Intake and Output [RC] Q12H Care 08/03/18 13:10 Active May Shower [RC] ASDIRECTED Care 08/03/18 13:05 Active Notify Provider Intake and Out [RC] ASDIRECTED Care 08/03/18 13:09 Active Notify Provider Vital Signs [RC] ASDIRECTED Care 08/03/18 13:09 Active Oxygen Therapy [RC] ASDIRECTED Care 08/03/18 13:09 Active RT Incentive Spirometry [RC] Q2HWA Care 08/03/18 13:09 Active Up With Assistance [RC] PER UNIT ROUTINE Care 08/03/18 13:09 Active Up ad Lila [RC] PER UNIT ROUTINE Care 08/03/18 13:09 Active Urinary Catheter Removal [RC] Per Unit Routine Care 08/03/18 13:09 Active Vital Signs [RC] Q4H Care 08/03/18 13:09 Active Regular Diet [DIET] Diet 08/03/18 Dinner Active Acetaminophen/oxyCODONE [Percocet 325-5 MG] Med 08/03/18 13:05 Active 1 tab PO Q4H PRN Acetaminophen/oxyCODONE [Percocet 325-5 MG] Med 08/03/18 13:05 Active 2 tab PO Q4H PRN Ketorolac [Toradol] Med 08/03/18 18:15 Active 30 mg IVPUSH Q6H Lactated Ringers [Ringers, Lactated] 1,000 ml Med 08/03/18 13:15 Active IV ASDIRECTED Morphine Sulfate Med 08/04/18 07:21 Active 4 mg IV Q2H PRN Ondansetron [Zofran] Med 08/03/18 13:05 Active 4 mg IVPUSH Q6H PRN Promethazine [Phenergan] Med 08/03/18 13:05 Active 25 mg IM Q6H PRN Perineal Care [OM.PC] Per Unit Routine Oth 08/03/18 13:10 Ordered Peripheral IV Discontinue [OM.PC] Routine Oth 08/03/18 13:09 Ordered Sequential Compression Device [OM.PC] Per Unit Routine Oth 08/03/18 13:09 Ordered Resuscitation Status Routine Resus Stat 08/03/18 13:05 Ordered Medication Orders Lactated Ringer's (Ringers, Lactated) 1,000 mls @ 125 mls/hr IV ASDIRECTED [facility] Ketorolac Tromethamine (Toradol) [address] [facility] Stop: 08/04/18 13:16 Last Admin: 08/04/18 06:14 Dose: 30 mg Admin: 08/03/18 23:40 Dose: 30 mg Admin: 08/03/18 18:22 Dose: 30 mg Morphine Sulfate (Morphine Sulfate) 4 mg IV Q2H PRN PRN Reason: Pain (severe 7-10) Ondansetron HCl (Zofran) 4 mg IVPUSH Q6H PRN PRN Reason: Nausea/Vomiting Oxycodone/Acetaminophen (Percocet 325-5 Mg) 1 tab PO Q4H PRN PRN Reason: Pain (moderate 4-6) Last Admin: 08/03/18 22:14 Dose: 1 tab Oxycodone/Acetaminophen (Percocet 325-5 Mg) 2 tab PO Q4H PRN PRN Reason: Pain (moderate 4-6) Promethazine HCl (Phenergan) 25 mg IM Q6H PRN PRN Reason: Nausea/Vomiting - Assessment Assessment (Free Text/Narrative):: POD#1 s/p LAVH + BSO, stable and afebrile Scant vaginal bleeding and pain well controlled. Denies hot flashes Clinically stable for discharge today - Plan Plan (Free Text/Narrative):: Discharge instructions reviewed Nothing in the vagina for 6 weeks Bleeding and infection precautions reviewed Pain medications sent in Follow up in the clinic next week- scheduled
== END 2018-08-04 10:35 | disposition home or self-care (01) ==
LOC: MW.SDS 08:02 → MW.MS 13:23 → MW.SDS 08-04 10:35
PROVIDERS: ATTEND Obstetrics & Gynecology
DX: D25.2 Subserosal leiomyoma of uterus (principal); N85.2 Hypertrophy of uterus
CPT/HCPCS: 36415; 58552; 80048; 84703; 85025; 86850; 86900; 86901; 88309; A9270; J0131; J0330; J0690; J1100; J1170; J1885; J1940; J2001; J2250; J2405; J2704; J3010; J3490

== ENCOUNTER 2022-05-06 09:12 | Day surgery (SDC) | payer BC ==
[~2022-05-06 09:12] MED LIST changes: -Bupivacaine 0.25% 10 ML SDV ONE; -Dexamethasone 4 MG/ML 5 ML MDV ONE; -Glycopyrrolate 0.2 MG/ML SDV ONE; +Lactated Ringers 1,000 ML IV SCH; -Methylene Blue 50 MG/10 ML Ampule ONE; -Midazolam 1 MG/ML 2 ML SDV ONE; -Neostigmine Methylsulfate 1 MG/ML 5 ML Syringe ONE; -Ondansetron 4 MG/2 ML SDV ONE; -Rocuronium 10 MG/ML 10 ML Syringe ONE; +Sodium Chloride 0.9% 10 ML Syringe FLUSH PRN; +Sodium Chloride 0.9% 2.5 ML Syringe FLUSH PRN; +Sodium Chloride 0.9% 20 ML SDV IV PRN; -Succinylcholine 200 MG/10 ML MDV ONE; -fentaNYL 250 MCG/5 ML SDV ONE
[2022-05-06] MEDS ORDERED: Lidocaine 2% 5 ML SDV ONE (10:57)
== END 2022-05-06 11:55 | disposition home or self-care (01) ==
LOC: MW.SDS 09:12
PROVIDERS: ATTEND Surgery
DX: Z12.11 Encounter for screening for malignant neoplasm of colon (principal); K57.30 Diverticulosis of large intestine without perforation or abscess without bleeding; I10 Essential (primary) hypertension; Z80.0 Family history of malignant neoplasm of digestive organs; Z79.82 Long term (current) use of aspirin; Z79.899 Other long term (current) drug therapy; Z98.890 Other specified postprocedural states; Z90.710 Acquired absence of both cervix and uterus
CPT/HCPCS: 45378; J2704; J7120